=== PATIENT | female | born 1955 | race Caucasian/White ===

== ENCOUNTER 2018-01-03 16:08 | Emergency (ER) | payer OTHER, BC ==
[2018-01-03 17:04] LABS: Absolute Lymphocytes (CBC) 2.4 K/uL (0.7-4.9); Absolute Monocytes 0.8 K/uL (0.1-1.3); Absolute Neutrophil 7.8 K/uL (1.8-8.0); Basophils % 1.5 % (0-1.3); Eosinophils % 1.2 % (0-4.4); Lymphocytes % 21.3 % (15.3-44.8); MCH 18.6 pg (27.0-35.0); MCV 63.6 fL (80-100); MPV 9.5 fL (7.6-11.3); Monocytes % 6.7 % (3.3-12.3); RBC Red Blood Cell Count 3.77 M/uL (3.86-4.86)
[2018-01-03 17:12] LABS: Ferritin 2.6 ng/mL (8-388)
[2018-01-03 17:19] LABS: ALT/SGPT 20 U/L (12-78); AST/SGOT 14 U/L (15-37); Albumin 4.3 g/dL (3.4-5.0); Alkaline Phosphatase 99 U/L (45-117); BUN Blood Urea Nitrogen 24 mg/dL (7-18); Bicarbonate 24 mmol/L (21-32); Bilirubin Direct < 0.1 mg/dL (0-0.2); Bilirubin Total 0.3 mg/dL (0.2-1.0); Glucose Level 98 mg/dL (74-106); Lipase 205 U/L (73-393); Potassium 3.8 mmol/L (3.5-5.1); Protein, Total 8.6 g/dL (6.4-8.2); Sodium Level 137 mmol/L (136-145)
[2018-01-03] MEDS ORDERED: NA CHLORIDE 0.9% 250 ML ONE (17:53)
--- NOTE | 2018-01-03 21:49 | ER ---
Nurse's Notes [facility] Name: Dionna Coles Age: 62 yrs Sex: Female : 1955 Arrival Date: 01/03/2018 Time: 16:14 Bed 23 Private MD: Diagnosis: Iron deficiency anemia Presentation: 01/03 16:18 Presenting complaint: Patient states: Had routine blood work thru PCP yesterday, Hgb hb 6.8, was told to come to ED. Reports dark black stool x 1 a month ago. Transition of care: patient was not received from another setting of care. Onset of symptoms was January 03, 2018. Risk Assessment: Do you want to hurt yourself or someone else? Patient reports no desire to harm self or others. Care prior to arrival: None. 16:18 Method Of Arrival: Ambulatory hb 16:18 Acuity: HERNÁN 3 hb 16:53 Initial Sepsis Screen: Does the patient meet any 2 criteria? No. Patient's initial kr2 sepsis screen is negative. Does the patient have a suspected source of infection? No. Patient's initial sepsis screen is negative. Triage Assessment: 16:54 General: Appears in no apparent distress. comfortable, well groomed, well developed, kr2 well nourished, Behavior is calm, cooperative, appropriate for age. Pain: Denies pain. 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 - Social history:: Smoking status: Patient/guardian denies using tobacco. - Ebola Screening: : No symptoms or risks identified at this time. Screenin:53 Abuse screen: Denies threats or abuse. Denies injuries from another. Nutritional kr2 screening: No deficits noted. Tuberculosis screening: No symptoms or risk factors identified. Fall Risk None identified. Assessment: 16:54 General: Appears in no apparent distress. comfortable, well groomed, well developed, kr2 well nourished, Behavior is calm, cooperative, appropriate for age. Pain: Denies pain. Neuro: Level of Consciousness is awake, alert, obeys commands, Oriented to person, place, time, situation. Cardiovascular: Reports fatigue, Capillary refill < 3 seconds in bilateral fingers Patient's skin is warm and dry. Rhythm is regular. Respiratory: Airway is patent Respiratory effort is even, unlabored, Respiratory pattern is regular, symmetrical. GI: Abdomen is flat, non-distended, Bowel sounds present X 4 quads. Patient currently denies bloody stool, rectal bleeding. : Urine is clear. EENT: Oral mucosa is moist. Derm: Skin is intact, is healthy with good turgor, Skin is dry, Skin is pale, pink, Skin temperature is warm. Musculoskeletal: Circulation, motion, and sensation intact. 18:05 Reassessment: Patient appears in no apparent distress at this time. Patient and/or kr2 family updated on plan of care and expected duration. Pain level reassessed. Patient is alert, oriented x 3, equal unlabored respirations, skin warm/dry/pink. Blood received for transfusion. Consent signed. Verified blood product/patient information with Montserrat Currie RN. See transfusion flow sheet. 18:20 Reassessment: Patient appears in no apparent distress at this time. Patient and/or kr2 family updated on plan of care and expected duration. Pain level reassessed. Patient is alert, oriented x 3, equal unlabored respirations, skin warm/dry/pink. No adverse reaction to transfusion. 19:02 Reassessment: Patient appears in no apparent distress at this time. Patient and/or kr2 family updated on plan of care and expected duration. Pain level reassessed. Patient is alert, oriented x 3, equal unlabored respirations, skin warm/dry/pink. Patient denies pain at this time. Patient states feeling better. 19:45 Reassessment: Patient appears in no apparent distress at this time. Patient and/or kr2 family updated on plan of care and expected duration. Pain level reassessed. Patient is alert, oriented x 3, equal unlabored respirations, skin warm/dry/pink. Transfusion completed, no adverse reactions. ISAÍAS Barger notified of completion time Patient denies pain at this time. Patient states feeling better. 21:03 Reassessment: Patient appears in no apparent distress at this time. Patient and/or kr2 family updated on plan of care and expected duration. Pain level reassessed. Patient is alert, oriented x 3, equal unlabored respirations, skin warm/dry/pink. Patient denies pain at this time. Patient states feeling better. 21:56 Reassessment: Patient appears in no apparent distress at this time. Patient and/or kr2 family updated on plan of care and expected duration. Pain level reassessed. Patient is alert, oriented x 3, equal unlabored respirations, skin warm/dry/pink. Patient denies pain at this time. Patient states feeling better. Vital Signs: 16:19 BP 155 / 92; Pulse 77; Resp 16; Temp 98.0; Pulse Ox 100% ; Pain 0/10; hb 16:55 BP 154 / 91; Pulse 70; Resp 17; Pulse Ox 99% on R/A; kr2 18:05 BP 123 / 81; Pulse 65; Resp 17; Temp 98.0; Pulse Ox 99% on R/A; kr2 18:10 BP 137 / 82; Pulse 64; Resp 15; Temp 98.5; Pulse Ox 98% on R/A; kr2 18:15 BP 119 / 78; Pulse 71; Resp 15; Temp 98; Pulse Ox 98% ; kr2 18:20 BP 137 / 80; Pulse 70; Resp 13; Temp 97.9; Pulse Ox 100% ; kr2 19:30 BP 132 / 78; Pulse 64; Resp 17; Pulse Ox 99% ; kr2 20:10 BP 146 / 84; Pulse 70; Resp 15; Pulse Ox 100% on R/A; kr2 21:03 BP 146 / 80; Pulse 66; Resp 17; Pulse Ox 98% on R/A; kr2 21:56 BP 138 / 78; Pulse 65; Resp 17; Pulse Ox 99% on R/A; kr2 ED Course: 16:14 Patient arrived in ED. rg4 16:19 Triage completed. hb 16:21 Arm band placed on right wrist. hb 16:23 Jun Madsen PA is PHCP. jr8 16:23 Memo Cabrera MD is Attending Physician. jr8 16:27 Martha Fernandez, VIDAL is Primary Nurse. kr2 16:30 Inserted saline lock: 20 gauge in right antecubital area, using aseptic technique. kr2 Blood collected. 16:52 Urine collected: clean catch specimen, clear. kr2 16:53 Patient has correct armband on for positive identification. Placed in gown. Bed in low kr2 position. Call light in reach. Side rails up X 1. Adult w/ patient. laboratory monitor on. Pulse ox on. NIBP on. Door closed. Warm blanket given. Head of bed elevated. 17:08 Notified Nurse Practitioner and/or Physician Marriage And Family Social Worker of a critical lab result(s), kr2 Hemoglobin 7. 20:45 Repeat lab(s) drawn. by ED staff, sent to lab. kr2 21:57 No provider procedures requiring assistance completed. IV discontinued, intact, kr2 bleeding controlled, No redness/swelling at site. Pressure dressing applied. Administered Medications: No medications were administered Outcome: 21:48 Discharge ordered by . shama 21:57 Discharged to home ambulatory. kr2 21:57 Condition: good 21:57 Discharge instructions given to patient, Instructed on discharge instructions, follow up and referral plans. medication usage, Demonstrated understanding of instructions, follow-up care, medications, Prescriptions given X 1. 21:57 Patient left the ED. kr2 Signatures: Jun Madsen PA PA jr8 Zofia Arroyo, VIDAL RN hb Xi Mir rg4 Martha Fernandez, RN RN kr2 Corrections: (The following items were deleted from the chart) 16:22 16:18 Presenting complaint: Patient states: Had routine blood work thru PCP yesterday, hb Hgb 6.8, was told to come to ED. hb
--- NOTE | 2018-01-03 21:49 | EDPHYS ---
Physician Documentation [facility] Name: Dionna Coles Age: 62 yrs Sex: Female : 1955 Arrival Date: 01/03/2018 Time: 16:14 Bed 23 Private MD: ED Physician Memo Cabrera HPI: 01/03 16:42 This 62 yrs old Female presents to ER via Ambulatory with complaints of jr8 Abnormal Lab Results. 16:42 Patient stated that she had blood work done by her PCP the other day. Called her today jr8 and stated that her hemoglobin was 6.8. Stated that she has had one black stool about a month ago but since then has been fine. Denies n/v/d. Denies bright red blood from vagina, rectum, or hematemesis . Severity of symptoms: At their worst the symptoms were mild in the emergency department the symptoms are unchanged. The patient has not experienced similar symptoms in the past. The patient has been recently seen by a physician: the patient's primary care provider. 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 - Social history:: Smoking status: Patient/guardian denies using tobacco. - Ebola Screening: : No symptoms or risks identified at this time. ROS: 17:09 Eyes: Negative for injury, pain, redness, and discharge, ENT: Negative for injury, jr8 pain, and discharge, Neck: Negative for injury, pain, and swelling, Cardiovascular: Negative for chest pain, palpitations, and edema, Respiratory: Negative for shortness of breath, cough, wheezing, and pleuritic chest pain, Back: Negative for injury and pain, MS/Extremity: Negative for injury and deformity, Skin: Negative for injury, rash, and discoloration. 17:09 Constitutional: Positive for fatigue. 17:09 Abdomen/GI: Positive for black/tarry stool, Negative for abdominal pain, nausea, vomiting, and diarrhea, abdominal cramps, abdominal distension, anorexia, dysphagia, hematemesis, rectal pain, rectal bleeding, bowel incontinence, flatulence. 17:09 Neuro: Positive for dizziness, Negative for altered mental status, gait disturbance, headache, hearing loss, loss of consciousness, numbness, seizure activity, speech changes, syncope, near syncope, tingling, tinnitus, tremor, visual changes, weakness. Exam: 17:09 Head/Face: Normocephalic, atraumatic. ENT: Nares patent. No nasal discharge, no jr8 septal abnormalities noted. Tympanic membranes are normal and external auditory canals are clear. Oropharynx with no redness, swelling, or masses, exudates, or evidence of obstruction, uvula midline. Mucous membranes moist. Neck: Trachea midline, no thyromegaly or masses palpated, and no cervical lymphadenopathy. Supple, full range of motion without nuchal rigidity, or vertebral point tenderness. No Meningismus. Cardiovascular: Regular rate and rhythm with a normal S1 and S2. No gallops, murmurs, or rubs. Normal PMI, no JVD. No pulse deficits. Respiratory: Lungs have equal breath sounds bilaterally, clear to auscultation and percussion. No rales, rhonchi or wheezes noted. No increased work of breathing, no retractions or nasal flaring. Back: No spinal tenderness. No costovertebral tenderness. Full range of motion. Skin: Warm, dry with normal turgor. Normal color with no rashes, no lesions, and no evidence of cellulitis. MS/ Extremity: Pulses equal, no cyanosis. Neurovascular intact. Full, normal range of motion. Neuro: Awake and alert, GCS 15, oriented to person, place, time, and situation. Cranial nerves II-XII grossly intact. Motor strength 5/5 in all extremities. Sensory grossly intact. Cerebellar exam normal. Normal gait. 17:09 Eyes: Periorbital structures: appear normal, Pupils: equal, round, and reactive to light and accomodation, Extraocular movements: intact throughout, Conjunctiva: pale, bilaterally, Sclera: no appreciated abnormality, Anterior chamber: normal, Lids and lashes: appear normal. 17:09 Abdomen/GI: Inspection: abdomen appears normal, Bowel sounds: active, all quadrants, Palpation: abdomen is soft and non-tender, in all quadrants, mass, is not appreciated, rebound tenderness, is not appreciated, voluntary guarding, is not appreciated, involuntary guarding, is not appreciated, no appreciated organomegaly, Rectal exam: rectal tone normal, Stool: brown, guaiac negative, hemorrhoid(s), external, without bleeding, without inflammation, without thrombosis, without pain, mass, is not appreciated, swelling, is not appreciated, tenderness, is not appreciated, fecal impaction, is not appreciated, the exam is chaperoned by the nurse, Indicators: McBurney's point is not tender, Lopez's sign is negative, Rovsing's sign is negative, Liver: no appreciated palpable abnormalities, tenderness, is not appreciated. Vital Signs: 16:19 BP 155 / 92; Pulse 77; Resp 16; Temp 98.0; Pulse Ox 100% ; Pain 0/10; hb 16:55 BP 154 / 91; Pulse 70; Resp 17; Pulse Ox 99% on R/A; kr2 18:05 BP 123 / 81; Pulse 65; Resp 17; Temp 98.0; Pulse Ox 99% on R/A; kr2 18:10 BP 137 / 82; Pulse 64; Resp 15; Temp 98.5; Pulse Ox 98% on R/A; kr2 18:15 BP 119 / 78; Pulse 71; Resp 15; Temp 98; Pulse Ox 98% ; kr2 18:20 BP 137 / 80; Pulse 70; Resp 13; Temp 97.9; Pulse Ox 100% ; kr2 19:30 BP 132 / 78; Pulse 64; Resp 17; Pulse Ox 99% ; kr2 20:10 BP 146 / 84; Pulse 70; Resp 15; Pulse Ox 100% on R/A; kr2 21:03 BP 146 / 80; Pulse 66; Resp 17; Pulse Ox 98% on R/A; kr2 21:56 BP 138 / 78; Pulse 65; Resp 17; Pulse Ox 99% on R/A; kr2 MDM: 16:24 Patient medically screened. [facility] 21:45 Data reviewed: vital signs, nurses notes, lab test result(s), and as a result, I will jr8 discharge patient. Data interpreted: Pulse oximetry: on room air is 98 %. Interpretation: normal. Counseling: I had a detailed discussion with the patient and/or guardian regarding: the historical points, exam findings, and any diagnostic results supporting the discharge/admit diagnosis, lab results, the need for outpatient follow up, a family practitioner, a extension clerk, to return to the emergency department if symptoms worsen or persist or if there are any questions or concerns that arise at home. ED course: Patient asked why CT scan will not be done. Explained to patient that she had a negative guaiac result with no rectal mass felt. That she has no palpable abdominal pain. That CT may or may not show us anything specific. That it would be efficacious to have Endoscopy/Colonoscopy done by her GI if indicated. Patient was good with this and will call them tomorrow. Will put her on iron supplementation . 01/03 16:24 Order name: Basic Metabolic Panel [facility] 01/03 16:24 Order name: CBC with Diff [facility] 01/03 16:24 Order name: Creatinine for Radiology [facility] 01/03 16:24 Order name: Hepatic Function [facility] 01/03 16:24 Order name: Lipase [facility] 01/03 16:24 Order name: TS [facility] 01/03 16:35 Order name: Iron Level [facility] 01/03 16:35 Order name: Ferritin [facility] 01/03 16:35 Order name: TIBC [facility] 01/03 16:44 Order name: [place] 01/03 17:04 Order name: Urine Dipstick--Ancillary (enter results) eb 01/03 17:06 Order name: CBC with Automated Diff; Complete Time: 17:09 [facility] 01/03 17:08 Order name: Creatinine (Radiology Only); Complete Time: 17:09 [facility] 01/03 17:12 Order name: Transferrin Sat/Iron Binding; Complete Time: 17:14 [facility] 01/03 16:24 Order name: IV Saline Lock; Complete Time: 16:34 [facility] 01/03 16:24 Order name: Labs collected and sent; Complete Time: 16:34 [facility] 01/03 16:24 Order name: Urine Dipstick-Ancillary (obtain specimen); Complete Time: 16:56 [facility] 01/03 17:12 Order name: Ferritin; Complete Time: 17:14 [facility] 01/03 17:19 Order name: ABO/RH no charge; Complete Time: 17:22 [facility] 01/03 17:19 Order name: Basic Metabolic Panel; Complete Time: 17:22 [facility] 01/03 17:19 Order name: Liver (Hepatic) Function; Complete Time: 17:22 [facility] 01/03 17:19 Order name: Lipase; Complete Time: 17:22 [facility] 01/03 17:29 Order name: Bb Add On eb 01/03 17:37 Order name: Type and Screen [facility] 01/03 20:40 Order name: Packed RBC Leukored -1 [facility] 01/03 20:48 Order name: Hemoglobin; Complete Time: 21:45 jr8 Administered Medications: No medications were administered Disposition: 01/04 07:09 Co-signature as Attending Physician, Memo Cabrera MD. rn Disposition: 01/03/18 21:48 Discharged to Home. Impression: Iron deficiency anemia. - Condition is Stable. - Discharge Instructions: Iron Deficiency Anemia, Adult, Iron-Rich Diet. - Prescriptions for Ferrous Sulfate 325 mg (65 mg Iron) Oral Tablet - take 1 tablet by ORAL route every 8 hours; 90 tablet. - Medication Reconciliation Form, Thank You Letter, Antibiotic Education, Prescription Opioid Use form. - Follow up: Private Physician; When: 1 - 2 days; Reason: Recheck today's complaints, Continuance of care, Re-evaluation by your physician. - Problem is new. - Symptoms have improved. Signatures: Dispatcher [employer] [facility] Memo Cabrera MD MD rn Roszak, Josh, PA PA jr8 Zofia Arroyo RN RN hb Martha Fernandez RN RN kr2 Corrections: (The following items were deleted from the chart) 01/03 21:57 21:48 01/03/2018 21:48 Discharged to Home. Impression: Iron deficiency anemia. kr2 Condition is Stable. Forms are Medication Reconciliation Form, Thank You Letter, Antibiotic Education, Prescription Opioid Use. Follow up: Private Physician; When: 1 - 2 days; Reason: Recheck today's complaints, Continuance of care, Re-evaluation by your physician. Problem is new. Symptoms have improved. jr8
[2018-02-02 16:58] LABS: Urine Blood NEGATIVE (NEG); Urine Glucose NEGATIVE (NEG); Urine Protein NEGATIVE (NEG); Urine Specific Gravity 1.005 (1.005-1.030); Urine pH 5.5 (5.0-7.0)
== END 2018-01-03 21:57 | disposition home or self-care (01) ==
LOC: ER 16:08
PROC: 30233N1 Transfusion of Nonautologous Red Blood Cells into Peripheral Vein, Percutaneous Approach (ICD-10-PCS; principal; 2018-01-03)
DX: D50.9 Iron deficiency anemia, unspecified (principal)
CPT/HCPCS: 36415; 36430; 80048; 80076; 82728; 83540; 83690; 84466; 85018; 85025; 86850; 86900; 86901; P9016; 81003; 99284